=== PATIENT | male | born 2000 | race Two or more races ===

== ENCOUNTER 2019-05-31 06:22 | Emergency (ER) | payer OTHER ==
[~2019-05-31] VITALS: Ht 172.7 cm; Wt 63.5 kg
[2019-05-31 07:08] VITALS: BP 122/83
[2019-05-31] MEDS ORDERED: FLUORESCEIN SOD 1 MG TEST STRIP OP ONE (07:30)
[2019-05-31] MEDS ORDERED: TETRACAINE HCL 0.5% OPTH(EYE) SOLN 4ML EACHEYE ONE (07:30)
== END 2019-05-31 08:39 | disposition home or self-care (01) ==
LOC: ER 06:22
DX: H10.33 Unspecified acute conjunctivitis, bilateral (principal); Z77.098 Contact with and (suspected) exposure to other hazardous, chiefly nonmedicinal, chemicals; X58.XXXA Exposure to other specified factors, initial encounter; Y93.89 Activity, other specified; Y92.69 Other specified industrial and construction area as the place of occurrence of the external cause; Y99.8 Other external cause status

== ENCOUNTER 2022-04-02 17:38 | Emergency (ER) | payer OTHER ==
[~2022-04-02] VITALS: Ht 175.3 cm; Wt 71.3 kg
[2022-04-02 18:32] VITALS: BP 121/84
[2022-04-02] MEDS ORDERED: IBUPROFEN 800 MG TAB PO ONE (19:00)
[2022-04-02] MEDS ORDERED: IBUP800T27 PO (19:21)
== END 2022-04-02 20:48 | disposition home or self-care (01) ==
LOC: ER 17:38
DX: S46.912A Strain of unspecified muscle, fascia and tendon at shoulder and upper arm level, left arm, initial encounter (principal); X58.XXXA Exposure to other specified factors, initial encounter; Y93.89 Activity, other specified; Y92.89 Other specified places as the place of occurrence of the external cause; Y99.8 Other external cause status
CPT/HCPCS: 73030